=== PATIENT | female | born 1965 | race African-American/Black ===

== ENCOUNTER 2020-04-30 14:56 | Emergency (ER) | payer OTHER ==
[~2020-04-30] VITALS: Ht 180.3 cm; Wt 72.6 kg
[2020-04-30 15:45] VITALS: BP 157/78
[2020-04-30 16:20] LABS: Urine Bacteria NONE SEEN /hpf (None Seen); Urine Blood 2+ /uL (Negative); Urine Mucus FEW (None Seen); Urine Specific Gravity 1.025 (1.001-1.035); Urine WBC 8 /hpf (0 - 5)
== END 2020-04-30 16:56 | disposition home or self-care (01) ==
LOC: ER 14:56
DX: N81.4 Uterovaginal prolapse, unspecified (principal)
CPT/HCPCS: 81001